=== PATIENT | male | born 2005 | race Two or more races ===

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

== ENCOUNTER 2024-04-19 06:20 | Emergency (ER) | payer OTHER, SELFPAY ==
--- NOTE | ~2024-04-19 | CT_ITS ---
EXAMINATION: CT ABDOMEN AND PELVIS WITH CONTRAST CLINICAL INFORMATION: Left testicular mass identified on ultrasound the same date. COMPARISON: None available. TECHNIQUE: Multidetector volumetric images were obtained from the superior aspect of the liver through the pubic symphysis following administration 85 mL of Omnipaque 350 intravenous contrast. Sagittal and coronal reformatted images were obtained on the technologist's workstation. Oral contrast: No This CT examination was performed using dose optimization techniques as appropriate, variously including the following: *Automated exposure control *Adjustment of mA and/or kV according to patient size (this includes techniques or standardized protocols for targeted exams where dose is matched to indication/reason for exam; i.e. extremities or head) *Use of iterative reconstruction technique FINDINGS: LUNG BASES: The visualized lung bases are unremarkable. LIVER, GALLBLADDER, AND BILIARY TREE: The liver is normal in size, shape, and attenuation. No focal hepatic lesion or biliary ductal dilatation is present. The gallbladder is unremarkable with no evidence of radiopaque gallstones, gallbladder wall thickening, or obvious pericholecystic inflammatory changes. PANCREAS: Unremarkable. SPLEEN: Unremarkable. ADRENAL GLANDS: Unremarkable. KIDNEYS AND URETERS: The kidneys are normal in size, shape, and attenuation. No hydronephrosis, hydroureter, or calculi seen. No perinephric stranding. BLADDER: Unremarkable. GASTROINTESTINAL TRACT: The small and large bowel are unremarkable. The appendix is unremarkable. ABDOMINAL WALL: No significant hernia is appreciated. LYMPH NODES: There is an increased number of normal morphology lymph nodes throughout the root of the small bowel mesentery, the largest measuring 8 mm in short axis. These are nonspecific. There are no pathologically enlarged lymph nodes identified. VASCULAR: Unremarkable. PELVIC VISCERA: The inguinal canals and prostate appear normal. Left testicular mass as detailed on the ultrasound the same day. OSSEOUS STRUCTURES: No suspicious lytic or blastic bone lesions. CT/CT abdomen pelvis w IV con IMPRESSION: 1. No acute findings in the abdomen or pelvis. No definitive metastatic disease. 2. Increased number of normal morphology lymph nodes throughout the small bowel mesentery, nonspecific. No pathologically enlarged nodes by size criteria. Electronically signed by: Jose Alberto Guo MD 04/19/2024 12:03 PM [facility]
--- NOTE | ~2024-04-19 | US_ITS ---
EXAMINATION: US SCROTUM CLINICAL INFORMATION: EXAMINATION: US SCROTUM WITH DOPPLER COMPLETE HISTORY: left test pain and swelling. COMPARISONS: There are no prior studies for comparison. FINDINGS: Real-time grayscale ultrasound imaging of the scrotum was performed. RIGHT TESTICLE: The right testis measures 5.1 x 2.7 x 3.2 cm and demonstrates normal homogeneous echotexture. No masses are seen. The right testis demonstrates normal arterial and venous color Doppler and spectral waveforms. RIGHT EPIDIDYMIS: Normal in size, shape, and vascularity. There is a 3 x 5 x 5 mm epididymal head cyst. LEFT TESTICLE: The left testis measures 3.7 x 2.1 x 2.7 cm and demonstrates heterogeneous infiltrative mass containing calcifications measuring at least 2.3 cm in size. There is increased vascularity of the mass. LEFT EPIDIDYMIS: Normal in size, shape, and vascularity. VARICOCELE: None. HYDROCELE: No significant hydrocele is seen. OTHER COMMENTS: None. US/US scrotum doppler IMPRESSION: 2.3 cm heterogeneous left testicular mass containing calcifications, compatible with testicular carcinoma. These findings were discussed with Dr. Goetz in the emergency room on 04/19/2024 and 9:25 AM. . COMPARISON: None available. TECHNIQUE: A sonogram of the scrotum was performed assessing crocker-scale appearance and color Doppler flow. Spectral Doppler analysis of the arterial and venous flow were performed in the testes bilaterally. FINDINGS: RIGHT: Right testicle measures cm, volume mL. No focal testicular parenchymal lesions are visualized. Spectral Doppler analysis of the arterial and venous flow is in the right testis. Right epididymal head is normal in size. No right hydrocele or varicocele is seen. Right epididymal Doppler flow is LEFT: Left testicle measures cm, volume mL. No focal testicular parenchymal lesions are visualized. Spectral Doppler analysis of the arterial and venous flow is in the left testis. Left epididymal head is normal in size. No left hydrocele or varicocele is seen. Left epididymal Doppler flow is IMPRESSION: Electronically signed by: Raudel Ty MD 04/19/2024 09:27 AM [facility]
--- NOTE | ~2024-04-19 | US_ITS ---
EXAMINATION: US SCROTUM CLINICAL INFORMATION: EXAMINATION: US SCROTUM WITH DOPPLER COMPLETE HISTORY: left test pain and swelling. COMPARISONS: There are no prior studies for comparison. FINDINGS: Real-time grayscale ultrasound imaging of the scrotum was performed. RIGHT TESTICLE: The right testis measures 5.1 x 2.7 x 3.2 cm and demonstrates normal homogeneous echotexture. No masses are seen. The right testis demonstrates normal arterial and venous color Doppler and spectral waveforms. RIGHT EPIDIDYMIS: Normal in size, shape, and vascularity. There is a 3 x 5 x 5 mm epididymal head cyst. LEFT TESTICLE: The left testis measures 3.7 x 2.1 x 2.7 cm and demonstrates heterogeneous infiltrative mass containing calcifications measuring at least 2.3 cm in size. There is increased vascularity of the mass. LEFT EPIDIDYMIS: Normal in size, shape, and vascularity. VARICOCELE: None. HYDROCELE: No significant hydrocele is seen. OTHER COMMENTS: None. US/US scrotum IMPRESSION: 2.3 cm heterogeneous left testicular mass containing calcifications, compatible with testicular carcinoma. These findings were discussed with Dr. Goetz in the emergency room on 04/19/2024 and 9:25 AM. . COMPARISON: None available. TECHNIQUE: A sonogram of the scrotum was performed assessing crocker-scale appearance and color Doppler flow. Spectral Doppler analysis of the arterial and venous flow were performed in the testes bilaterally. FINDINGS: RIGHT: Right testicle measures cm, volume mL. No focal testicular parenchymal lesions are visualized. Spectral Doppler analysis of the arterial and venous flow is in the right testis. Right epididymal head is normal in size. No right hydrocele or varicocele is seen. Right epididymal Doppler flow is LEFT: Left testicle measures cm, volume mL. No focal testicular parenchymal lesions are visualized. Spectral Doppler analysis of the arterial and venous flow is in the left testis. Left epididymal head is normal in size. No left hydrocele or varicocele is seen. Left epididymal Doppler flow is IMPRESSION: Electronically signed by: Raudel Ty MD 04/19/2024 09:27 AM [facility]
[2024-04-19 06:45] VITALS: BP 117/56; PULSE 57; RESP 16; TEMP 36.4; O2SAT 98; BMI 22.0
[2024-04-19 07:12] LABS: Appearance Urine Clear; Color Urine Yellow; Glucose Urine UA Negative (Negative); Leukocyte Esterase Urine Negative (Negative); Nitrite Urine Negative (Negative); PH 5.5 (5.0-9.0); Specific Gravity - Urine 1.025 (1.005-1.025); Urine Blood Negative (Negative); Urine Ketones Negative (Negative); Urine Protein Negative (Neg-Trace)
--- OUTSIDE RECORDS SUMMARY | 2024-04-19 08:08 | XMS_ITS | Encounter Summary ---
Author Organization [facility] Address [address] [place] [address] Phone Care Team Providers Care Automotive General Sales Manager Name Role Phone Mackenzie Ya MD Primary Care Provider [phone] Encounter Details Date Type Department Care Team (Late st Contact Info) Description 08/31/2015 Documentation [facility] [place] Family Medicine [address] [place] [address] Family Medicine, Physician [address] [place], [place] [id number] Social History Tobacco Use Types Packs/Day Years Used Date Smoking Tobacco: Never Assessed Sex and Gender Information Value Date Recorded Sex Assigned at Not on file Legal Sex Male 5:09 PM EDT Gender Identity Not on file Sexual Orientation Straight 05/25/2022 11 :04 AM EDT documented as of this encounter Plan of Treatment Not on file documented as of this encounter Visit Diagnoses Not on filedocumented in this encounter Care Teams Automotive General Sales Manager Relationship Specialty Start Date End Date Mackenzie Ya MD [address] [facility] [address] PCP - General 09/30/16 05/11/23 documented as of this encounter
--- OUTSIDE RECORDS SUMMARY | 2024-04-19 08:08 | XMS_ITS | Encounter Summary ---
Author Organization [facility] Address [address] [place] [address] Phone Care Team Providers Care Intern Product Marketing Manager Name Role Phone Mackenzie Ya MD Primary Care Provider [phone] Encounter Details Date Type Department Care Team (Late st Contact Info) Description 10/06/2016 Conversion Encounter [facility] [place] [address] [place] [address] Social History Tobacco Use Types Packs/Day Years [...] on filedocumented in this encounter Care Teams Intern Product Marketing Manager Relationship Specialty Start Date End Date Mackenzie Ya MD [address] [place] [address] PCP - General 09/30/16 05/11/23 documented as of this encounter
--- OUTSIDE RECORDS SUMMARY | 2024-04-19 08:08 | XMS_ITS | Clinical Summary ---
Author Organization [facility] Address [address] [place] [phone] Phone Care Team Providers Care Traveling Engineer Name Role Phone Unavailable Primary Care Provider Unavailabl e Allergies No known active allergies Medications No known medications Active Problems Problem Noted Date Diagnosed Date Personal history of COVID-19 01/25/2021 Overview (01/25/2021): Sx started 01/15/21 Tested positive 01/21/2021 10 days of isolation ends 01/26/2021 - can return to school Recommended clearance to return to sports d/t family hx of palpatations Acne vulgaris 05/28/2020 Assessment & Plan (05/28/2020 3:19 PM EDT): Acne discussed and information given. Use benzoyl peroxide wash every morning. Start tretinoin 0.025% cream nightly. Follow-up in 2 months if no better. Psychosocial stressors Overview (08/13/2018): Concerns: New Practice - Transfer from [facility]. Last [facility] 02/21/14. DCF custody since 11/2013. 1st in Foster care then Great Mat Aunt got custody 01/2014. Mom is listed as having Bipolar illness. Dad in MVA 2009 Lived in [place] for 2 years in past when living with Pat GP while mom was homeless. Has been back in [place] since 2012 Mom had supervised visits but stopped when Mom grabbed Great Aunt. DCF worker = [facility]in [facility] PGP are trying to get custody 07/2018: Guardian Ant became his legal guardian in June 2018. DCF closed case Assessment & Plan (08/13/2018 1:24 PM EDT): Great Aunt is guardian Pt does not see mom DCF not involved any more Resolved Problems Problem Noted Date Diagnosed Date Resolved Date Nocturnal enuresis 06/09/2015 9 Overview (08/13/2018): DDAVP started 2016 Immunizations Immunization Administration Dates Next Due COVID-19 Pfizer, bivalent, 12+ years 05/25/2022 COVID-19 Pfizer, monovalent, 12+ years 2,02/04/2021 DTaP 03/03/2009, 6,02/28/2005,12/14,2004 HPV Vaccine 9 Valent 07/07/2016,06/09/2015 Hep A, ped/adol 07/07/2016,06/09/2015 Hep B, ped/adol 02/28/2005,2004,2004 HiB 11/23/2005, 6,05/27/2005,12/14 IPV 03/03/2009, 6,2004,08/26 Influenza 12/25/2013 Influenza, injectable, quadrivalent 06/09/2015 Influenza, injectable, quadr ivalent, preservative free 05/25/2022,05/28/2020,03/15/2018 MMR 03/03/2009,07/27/2005 Meningococcal B Trumenba 05/25/2022 Meningococcal Conj (Menactra) MCV4P 06/09/2015 Meningococcal Conj (Menquadfi) MCV4TT 05/25/2022 Pneumococcal Conjugate 13-Valent 05/27/2005,10/2005,2004 Tdap 06/09/2015 Varicella 03/03/2009,07/27/2005 Family History Medical History Relation Name Comments Bipolar disorder Mother Relation Name Status Comments Father MVA Mother Other Addy Mani Social History Tobacco Use Types Packs/Day Years Used Date Smoking Tobacco: Never Smokeless Tobacco: Never Alcohol Use Standard Drinks/Week Comments Never 0 (1 standard drink = 0.6 oz pur e alcohol) Hunger/Food Answer Date Recorded In the last 12 months, did y ou or your family ever eat less than you felt you should because there wasn't enough money for food? No 05/25/2022 Stable Housing Answer Date Recorded Are you worried that in the next 2 months you may not have stable housing? No 05/25/2022 Transportation Concerns Answer Date Rec orded In the last 12 months, have you or your family ever had to go without healthcare because you didn't have a way to get there? No 05/25/2022 Hazards in Home Answer Date Recorded Think about the place you li ve. Do you have problems with any of the following? Pests (mice or roaches), mold, no/not working smoke detectors, water leaks, no window guards. No 2022 Financing Utilities Answer Date Recorde d In the last 12 months, has t he electric, gas, oil, or water company threatened to shut off your services in your home? No 05/25/2022 Safety at Home Answer Date Recorded Are you or your family worried about feeling saf e in your home? No 05/25/2022 Outside Support Answer Date Recorded Do you feel that you need mo re support from other people or programs to help you care for yourself or your family? No 05/25/2022 Understanding Health Concerns Answer Da te Recorded Do you need help understandi ng your or your child's healthcare needs (diagnosis, medications, plan, etc.)? No 05/25/2022 Financing Health Concerns Answer Date R ecorded In the last 12 months, was t here a time when your child needed to see a doctor or get medications or supplies but could not because of cost? No 05/25/2022 Missing School or Work Answer Date Dayo rded Did you or your child miss s chool or work because of a health problem that could have been avoided? No 05/25/2022 Sex and Gender Information Value Date Recorded Sex Assigned at Not on file Legal Sex Male 5:09 PM EDT Gender Identity Not on file Sexual Orientation Straight 05/25/2022 11 :04 AM EDT Last Filed Vital Signs Vital Sign Reading Time Taken Comments Blood Pressure 125/64 05/25/2022 10:16 AM EDT Pulse 66 05/25/2022 10:16 AM EDT Temperature 36.3 ??C (97.4 ??F) 02/04/2021 1 0:11 AM EST Respiratory Rate - - Oxygen Saturation - - Inhaled Oxygen Concentration - - Weight 61.1 kg (134 lb 9.6 oz) 05/26/19 10:16 AM EDT Height 162.6 cm (5' 4 ) 05/25/2022 10:1 6 AM EDT Body Mass Index 23.1 05/25/2022 10:16 AM EDT Body Mass Index Percentile 65.56% 05/25 10:16 AM EDT Growth Chart: [facility] (Boys, 2-2 0 Years) Plan of Treatment Health Maintenance Due Date Last Done Comments Men B Vaccine (2 of 2 - Trumenba SCDM 2-dose series) 11/24/2022 05/25/2022 Influenza Vaccines (#1) 2023 05/26/19, 05/28/2020, 03/15/2018, Additional history exists COVID-19 Vaccine ( season) 2023 05/25/2022, 02/25/2021, 02/04/2021 DTaP,Tdap,and Td Vaccines (7 - Td or Tdap) 06/08/2025 06/09/2015, 03/03/2009, 11/23/2005, Additional history exists Hepatitis B Vaccines Completed 02/28/2005, 2004, 2004 Pneumococcal Vaccine Aged Out 05/27/2005, 02/28/2005, 2004 No longer eligible based on patient's age to complete this topic HIB Vaccines Completed 11/23/2005, 08/2005, 05/27/2005, Additional history exists IPV Vaccines Completed 03/03/2009, 10/2005, 2004, Additional history exists MMR Vaccines Completed 03/03/2009, 07/27/2005 Varicella Vaccines Completed 03/03/2009, 07/27/2005 HPV Vaccines Completed 07/07/2016, 06/09/2015 Hepatitis A Vaccines Completed 07/07/2016, 06/09/19 16 Meningococcal Vaccine Completed 05/25/2022, 016 Insurance [employer] NON PCC [facility] Address: [address] [address] [place] [address]
--- NOTE | 2024-04-19 09:00 | ED_ITS ---
HPI - Male Genitourinary General Chief complaint: Urogenital-Male Stated complaint: uro gen male Time Seen by Provider: 04/19/24 08:43 Source: patient Mode of arrival: ambulatory Limitations: no limitations History of Present Illness ED Provider: Janet Schuster NP HPI Narrative: patient is a 18-year-old male who presents emergency department with his fiancee for evaluation of left testicular pain and swelling. He reports that this has been ongoing for the past 3 months, has not changed but also has not improved. He states that he recently had moved to the area and was awaiting his health insurance before he sought evaluation. He denies any precipitating injury to this area. He states he has been able to urinate without difficulty denies dysuria, urinary frequency/ urgency / hesitancy or hematuria. He denies abnormal urethral discharge. He denies concern for sexually transmitted infections. He denies pain with intercourse. as far as he knows there has been no prior testicular issues in the past. He denies any rashes or lesions. Related Data Allergies Allergy/AdvReac Type Severity Reaction Status Date / Time No Known Allergies Allergy Verified 04/19/24 06:47 [No Known Allergies*] Review of Systems 2 Review of Systems: Yes all other systems are reviewed and are negative PMFSH Past Medical History Attestation statement: The following information was validated with the patient. Source: old records reviewed Physical Exam 2 Vital Signs: Vital Signs: Last Vital Signs Temp 0 F L 04/19/24 13:50 Pulse 63 04/19/24 13:50 Resp 16 04/19/24 13:50 BP 134/68 04/19/24 13:50 Pulse Ox 99 04/19/24 13:50 O2 Del Method Room Air 04/19/24 13:50 BMI result Body Mass Index 22.0 Appearance: Alert.?Oriented to person, place and time. No acute distress.?Normal affect. Eyes: Pupils equal, round and reactive to light.? ENT: Pharynx normal.?? Neck: Normal inspection.? Neck supple.?? CVS: Heart sounds normal. Normal heart rate and rhythm.? Pulses normal.?? Respiratory: No respiratory distress.? Lung sounds clear to auscultation bilaterally?? Abdomen: Soft and non-tender. Normoactive bowel sounds. Urogenital: performed with technical program manager ED registered veterinary technician Shawna - cremasteric reflex is negative on the left, negative friend sign. No palpable mass erythema or warmth. Skin: Skin warm and dry.? Normal skin color.? Normal skin turgor.?? Extremities: No lower extremity edema.? No calf ttp? Neuro: Moves all extremities spontaneously. Sensation intact bilaterally. CN II- XII intact. No focal neuro deficits. Ambulates with normal steady gait. Course Reevaluation(s) Reevaluation #1: Patient updated on ultrasound findings highly concerning for cancerous etiology in addition to plan of care for additional serum labs and CT of the abdomen and pelvis at this time pending Urology consultation in the emergency department today. All questions were answered. Time: 10:28 Medications Administered Discontinued Medications Generic Name Dose Route Start Last Admin Trade Name Freq PRN Reason Stop Dose Admin Sodium Chloride 1,000 mls @ 999 mls/hr 04/19/24 10:30 04/19/24 13:07 Ns IV 04/19/24 11:30 Infused .Q1H1M TORRES Infusion Iohexol 100 ml 04/19/24 11:44 04/19/24 11:44 Iohexol 350 Mg/Ml 100 Ml Infus..Btl IV 04/19/24 11:45 85 ml ONCE ONE Administration Ketorolac Tromethamine 15 mg 04/19/24 11:59 04/19/24 12:09 Ketorolac Tromethamine 15 Mg/Ml Vial IVPUSH 04/19/24 12:00 15 mg ONCE ONE Administration Medical Decision Making Medical Decision Making MDM Narrative: Patient is a 18-year-old male otherwise healthy presenting for evaluation of 3 months with left testicular pain and subjective swelling without acute changes over the past 3 months. Had not sought prior evaluation due to lack health insurance. on examination today has a negative cremasteric reflex on the left, negative phren sign. Without external skin changes or cellulitic changes. No appreciable varicocele. CBC is without leukocytosis anemia or thrombocytopenia. No electrolyte derangement. No HIWOT. Overall unremarkable LFTs. Urinalysis without evidence of infection, is however concentrated. Scrotal ultrasound obtained concerning for left testicular mass, no evidence of torsion Differential Diagnosis Differential Diagnoses: The differential diagnosis associated with the presentation includes (Testicular mass, testicular torsion, varicocele, hydrocele) Admission/Observation Consideration of admission/observation: Escalation of care including admission/observation considered Consult Healthcare Provider Management of the patient was discussed with: Preservative Filler Machine Operator Urology; Dr. Shaikh - ultrasound revealing 2.3 cm heterogeneous left testicular mass containing calcifications concerning for carcinoma - recommends CT of the abdomen and pelvis for staging in addition to beta hCG and alpha fetoprotein, planning for outpatient orchiectomy next week, will be by later this afternoon to examine patient. Lab Data MDM Lab Attestation statement: I reviewed the patient's lab results. (See narrative above) 04/19/24 09:17 04/19/24 09:16 Labs: Lab Results 04/19/24 04/19/24 04/19/24 Range/Units 07:03 07:04 09:16 WBC (4.8-10.8) X10*3/uL RBC (4.60-5.80) X10*6/uL Hgb (14.0-18.0) g/dl Hct (42.0-52.0) % MCV (80.0-98.0) fL MCH (27.0-33.0) pg MCHC (31.0-36.0) g/dl RDW (11.0-16.0) % Plt Count (160-400) X10*3/uL MPV (9.4-12.4) fL Immature Gran % (Auto) (0.0-0.4) % Neut % (Auto) (45-73) % Lymph % (Auto) (20-40) % [place] % (Auto) (2-11) % Eos % (Auto) (0-4) % Baso % (Auto) (0-2) % Lymph # (Auto) (1.2-4.9) X10*3/uL [place] # (Auto) (0.1-1.2) X10*3/uL Eos # (Auto) (0.0-0.4) X10*3/uL Baso # (Auto) (0.0-0.2) X10*3/uL Abs Immat Gran (auto) (0.00-0.03) X10*3/uL Absolute Neuts (auto) (2.0-8.3) x10*3/uL Absolute Nucleated RBC (0.0-0.012) X10*3/uL Nucleated RBC % (auto) (0.0-0.2) /100WBC Sodium 141 (135-145) mmol/L Potassium 3.9 (3.3-5.1) mmol/L Chloride 104 (96-108) mmol/L Carbon Dioxide 27 (22-29) mmol/L Anion Gap 14 (12-20) BUN 17 H (9-16) mg/dL Creatinine 0.80 (0.5-1.4) mg/dL Estim Creat Clear Calc 129.6 Estimated GFR > 60 Random Glucose 97 (60-115) mg/dL Calcium 9.8 (8.4-10.2) mg/dL Total Bilirubin 0.2 (0.0-1.0) mg/dL AST 33 (5-37) U/L ALT 44 H (0-40) U/L Alkaline Phosphatase 96 (39-117) U/L Total Protein 8.4 H (6.5-8.0) g/dL Albumin 4.9 (3.5-5.0) g/dL Beta HCG, Quant mIU/mL Urine Color Yellow Urine Appearance Clear Urine pH 5.5 (5.0-9.0) Ur Specific Barre 1.025 (1.005-1.025) Urine Protein Negative (Neg-Trace) mg/dL Urine Glucose (UA) Negative (Negative) mg/dL Urine Ketones Negative (Negative) mg/dL Urine Blood Negative (Negative) Urine Nitrite Negative (Negative) Ur Leukocyte Esterase Negative (Negative) Chlam trachomat DNA PCR NOT DETECTED (Not Detect.) N.gonorrhoeae DNA (PCR) NOT DETECTED (Not Detect.) 04/19/24 04/19/24 Range/Units 09:17 11:05 WBC 6.3 (4.8-10.8) X10*3/uL RBC 5.51 (4.60-5.80) X10*6/uL Hgb 15.3 (14.0-18.0) g/dl Hct 44.5 (42.0-52.0) % MCV 80.8 (80.0-98.0) fL MCH 27.8 (27.0-33.0) pg MCHC 34.4 (31.0-36.0) g/dl RDW 13.0 (11.0-16.0) % Plt Count 225 (160-400) X10*3/uL MPV 9.2 L (9.4-12.4) fL Immature Gran % (Auto) 0.5 H (0.0-0.4) % Neut % (Auto) 49.3 (45-73) % Lymph % (Auto) 38.5 (20-40) % [place] % (Auto) 8.7 (2-11) % Eos % (Auto) 2.2 (0-4) % Baso % (Auto) 0.8 (0-2) % Lymph # (Auto) 2.4 (1.2-4.9) X10*3/uL [place] # (Auto) 0.6 (0.1-1.2) X10*3/uL Eos # (Auto) 0.1 (0.0-0.4) X10*3/uL Baso # (Auto) 0.1 (0.0-0.2) X10*3/uL Abs Immat Gran (auto) 0.03 (0.00-0.03) X10*3/uL Absolute Neuts (auto) 3.1 (2.0-8.3) x10*3/uL Absolute Nucleated RBC 0.000 (0.0-0.012) X10*3/uL Nucleated RBC % (auto) 0.0 (0.0-0.2) /100WBC Sodium (135-145) mmol/L Potassium (3.3-5.1) mmol/L Chloride (96-108) mmol/L Carbon Dioxide (22-29) mmol/L Anion Gap (12-20) BUN (9-16) mg/dL Creatinine (0.5-1.4) mg/dL Estim Creat Clear Calc Estimated GFR Random Glucose (60-115) mg/dL Calcium (8.4-10.2) mg/dL Total Bilirubin (0.0-1.0) mg/dL AST (5-37) U/L ALT (0-40) U/L Alkaline Phosphatase (39-117) U/L Total Protein (6.5-8.0) g/dL Albumin (3.5-5.0) g/dL Beta HCG, Quant < 2 mIU/mL Urine Color Urine Appearance Urine pH (5.0-9.0) Ur Specific [place] (1.005-1.025) Urine Protein (Neg-Trace) mg/dL Urine Glucose (UA) (Negative) mg/dL Urine Ketones (Negative) mg/dL Urine Blood (Negative) Urine Nitrite (Negative) Ur Leukocyte Esterase (Negative) Chlam trachomat DNA PCR (Not Detect.) N.gonorrhoeae DNA (PCR) (Not Detect.) Radiology Impression Discussion of test interpretation with radiology: I have reviewed the radiologist's reading. Radiologist Impression: US SCROTUM CLINICAL INFORMATION: EXAMINATION: US SCROTUM WITH DOPPLER COMPLETE HISTORY: left test pain and swelling. COMPARISONS: There are no prior studies for comparison. FINDINGS: Real-time grayscale ultrasound imaging of the scrotum was performed. RIGHT TESTICLE: The right testis measures 5.1 x 2.7 x 3.2 cm and demonstrates normal homogeneous echotexture. No masses are seen. The right testis demonstrates normal arterial and venous color Doppler and spectral waveforms. RIGHT EPIDIDYMIS: Normal in size, shape, and vascularity. There is a 3 x 5 x 5 mm epididymal head cyst. LEFT TESTICLE: The left testis measures 3.7 x 2.1 x 2.7 cm and demonstrates heterogeneous infiltrative mass containing calcifications measuring at least 2.3 cm in size. There is increased vascularity of the mass. LEFT EPIDIDYMIS: Normal in size, shape, and vascularity. VARICOCELE: None. HYDROCELE: No significant hydrocele is seen. OTHER COMMENTS: None. US/US scrotum doppler IMPRESSION: 2.3 cm heterogeneous left testicular mass containing calcifications, compatible with testicular carcinoma. These findings were discussed with Dr. Goetz in the emergency room on 04/19/2024 and 9:[address]/CT abdomen pelvis w IV con IMPRESSION: 1. No acute findings in the abdomen or pelvis. No definitive metastatic disease. 2. Increased number of normal morphology lymph nodes throughout the small bowel mesentery, nonspecific. No pathologically enlarged nodes by size criteria. Discharge Plan Discharge Clinical Impression: Mass of left testicle Patient Disposition: Home, Self-Care Instructions: Testicle Pain (ED) Additional Instructions: as discussed, your workup today is concerning for a mass found in the left testicle most concerning for cancer. As mentioned, you will follow up outpatient with Urology next week, Dr. Shaikh who came and saw you at bedside today. Plan is for outpatient orchiectomy /Removal of the testicle. if you do not hear from their office by Monday please contact them to schedule follow-up visit. Referrals: Paul Shaikh MD [Physician] - Interventions: ED Discharge Assessment Last Done: 04/19/24 13:50 Discharge Date/Time: 04/19/24 13:51 Print Language: [place]
[2024-04-19 09:28] LABS: MANUAL DIFF FLAG NO
[2024-04-19 09:30] LABS: Basophils Absolute Auto 0.1 X10*3/uL (0.0-0.2); Basophils Percent Auto 0.8 % (0-2); Eosinophils Absolute Auto 0.1 X10*3/uL (0.0-0.4); Eosinophils Percent Auto 2.2 % (0-4); Hematocrit 44.5 % (42.0-52.0); Hemoglobin 15.3 g/dl (14.0-18.0); Imm Gran Abs Auto 0.03 X10*3/uL (0.00-0.03); Imm Gran Pct Auto 0.5 % (0.0-0.4); Lymphocytes Absolute Auto 2.4 X10*3/uL (1.2-4.9); Lymphocytes Percent Auto 38.5 % (20-40); Mean Corpuscular HGB Conc 34.4 g/dl (31.0-36.0); Mean Corpuscular Hemoglobin 27.8 pg (27.0-33.0); Mean Corpuscular Volume 80.8 fL (80.0-98.0); Mean Platelet Volume 9.2 fL (9.4-12.4); Monocytes Absolute Auto 0.6 X10*3/uL (0.1-1.2); Monocytes Percent Auto 8.7 % (2-11); Neutrophils Absolute Auto 3.1 x10*3/uL (2.0-8.3); Neutrophils Percent Auto 49.3 % (45-73); Platelet Count 225 X10*3/uL (160-400); Red Blood Count 5.51 X10*6/uL (4.60-5.80); White Blood Count 6.3 X10*3/uL (4.8-10.8)
[2024-04-19 09:43] LABS: Alanine Aminotransferase 44 U/L (0-40); Albumin Level 4.9 g/dL (3.5-5.0); Alkaline Phosphatase 96 U/L (39-117); Anion Gap 14 (12-20); Aspartate Amino Transferase 33 U/L (5-37); Bilirubin Total 0.2 mg/dL (0.0-1.0); Blood Urea Nitrogen 17 mg/dL (9-16); Calcium 9.8 mg/dL (8.4-10.2); Carbon Dioxide 27 mmol/L (22-29); Chloride 104 mmol/L (96-108); Creatinine Clr Calc Pharmacy 129.6; Estimated Glomerular Filt Rate > 60; Glucose Random 97 mg/dL (60-115); Potassium 3.9 mmol/L (3.3-5.1); Sodium 141 mmol/L (135-145); Total Protein 8.4 g/dL (6.5-8.0)
[2024-04-19 10:49] LABS: CT PCR NOT DETECTED (Not Detect.); NG PCR NOT DETECTED (Not Detect.)
[2024-04-19] MEDS: 0.9 % Sodium Chloride 1,000 ML 999 ML IV (11:00)
[2024-04-19 11:36] LABS: HCG Quantitative < 2 mIU/mL
[2024-04-19] MEDS: iohexoL 350 MG/ML 100 ML INFUS..BTL IV (11:44)
[2024-04-19 11:51] VITALS: BP 134/68; PULSE 63; RESP 16; O2SAT 99
--- NOTE | 2024-04-19 11:59 | ECG_ITS ---
Test Reason : TORSION Blood Pressure : */* mmHG Vent. Rate : 53 BPM Atrial Rate : 53 BPM P-R Int : 142 ms QRS Dur : 88 ms QT Int : 396 ms P-R-T Axes : 46 68 23 degrees QTcB Int : 371 ms Sinus bradycardia Otherwise normal ECG No previous ECGs available Referred By: Janet Schuster Electronically Signed By: Tyler Johnson
[2024-04-19] MEDS: Ketorolac Tromethamine 15 MG/ML VIAL IVPUSH (12:09)
--- NOTE | 2024-04-19 13:21 | PM.UROCN ---
History of Present Illness Consult details Consult date: 04/19/24 Narrative: CC: left testicle mass 18-year-old male Persistent mass left testicle now with some degree of discomfort Imaging - US - The left testis measures 3.7 x 2.1 x 2.7 cm and demonstrates heterogeneous infiltrative mass containing calcifications measuring at least 2.3 cm in size. There is increased vascularity of the mass. - CT IMPRESSION: 1. No acute findings in the abdomen or pelvis. No definitive metastatic disease. 2. Increased number of normal morphology lymph nodes throughout the small bowel mesentery, nonspecific. No pathologically enlarged nodes by size criteria Laboratory - alpha fetoprotein and beta HCG pending Recommend left radical orchiectomy Palpable mass left testicle Review of Systems Constitutional: Constitutional: Reports as per HPI and Reports no additional constitutional complaints Cardiovascular: Cardiovascular: Reports as per HPI and Reports no additional cardiovascular complaints Respiratory: Respiratory: Reports as per HPI and Reports no additional respiratory complaints Gastrointestinal: Gastrointestinal: Reports as per HPI and Reports no additional gastrointestinal complaints Genitourinary: Genitourinary: Reports as per HPI Musculoskeletal: Musculoskeletal: Reports no additional musculoskeletal complaints and Reports as per HPI Neurologic: Reports system reviewed and no additional complaints, except as documented and Reports as per HPI [facility] Social History Social History Smoked in Last 30 Days: No Use of substances other than those prescribed or required for medical reasons: No Advance Directives: No Advance Directives Information Provided: No Do you have a plan to hurt others: No Plan Meds Allergies Allergy/AdvReac Type Severity Reaction Status Date / Time No Known Allergies Allergy Verified 04/19/24 06:47 [No Known Allergies*] Physical Exam Vital Signs: Vital Signs: Last Vital Signs Temp 97.5 F 04/19/24 06:45 Pulse 63 04/19/24 11:51 Resp 16 04/19/24 11:51 BP 134/68 04/19/24 11:51 Pulse Ox 99 04/19/24 11:51 O2 Del Method Room Air 04/19/24 11:51 BMI result Body Mass Index 22.0 Const: General: cooperative, healthy appearing, comfortable and no acute distress Orientation/consciousness: patient oriented x3 HEENT: Face and sinus: Yes normal facial exam Mouth: moist mucous membranes Neck: Neck: Yes normal visual inspection, Yes full ROM and Yes trachea midline Chest: Chest palpation & inspection: normal inspection of the chest Resp: Effort & Inspection: normal respiratory effort, able to speak in complete sentences and no respiratory distress GI: Inspection: Yes normal to inspection Back/Spine/Pelvis: Cervical Spine: normal cervical lordosis Thoracic/Lumbar Spine: thoracic and lumbar spine normal to inspection Skin: General skin exam: no rashes or lesions noted Neuro: General: patient oriented x3, tone normal and moves all extremities Extrem: General: Yes normal to inspection and Yes capillary refill normal Results Labs 04/19/24 09:17 04/19/24 09:16 Labs: Abnormal lab results 04/19/24 04/19/24 Range/Units 09:16 09:17 MPV 9.2 L (9.4-12.4) fL Immature Gran % (Auto) 0.5 H (0.0-0.4) % BUN 17 H (9-16) mg/dL ALT 44 H (0-40) U/L Total Protein 8.4 H (6.5-8.0) g/dL Short CBC 04/19/24 Range/Units 09:17 WBC 6.3 (4.8-10.8) X10*3/uL Hgb 15.3 (14.0-18.0) g/dl Hct 44.5 (42.0-52.0) % Plt Count 225 (160-400) X10*3/uL BMP 04/19/24 09:16 Sodium 141 Potassium 3.9 Chloride 104 Carbon Dioxide 27 BUN 17 H Creatinine 0.80 Calcium 9.8 Liver Function 04/19/24 Range/Units 09:16 Total Bilirubin 0.2 (0.0-1.0) mg/dL AST 33 (5-37) U/L ALT 44 H (0-40) U/L Alkaline Phosphatase 96 (39-117) U/L Albumin 4.9 (3.5-5.0) g/dL Urine 04/19/24 Range/Units 07:03 Urine Color Yellow Urine Appearance Clear Urine pH 5.5 (5.0-9.0) Ur Specific [place] 1.025 (1.005-1.025) Urine Protein Negative (Neg-Trace) mg/dL Urine Glucose (UA) Negative (Negative) mg/dL All other labs normal. Assessment and Plan (1) Testicular cancer: Status: Acute Plan Risks, benefits and alternatives to therapy were discussed. These include but are not limited to infection, bleeding, damage to local organs and tissues, need for further interventions. Anesthetic risks regarding cardiac arrhythmia, blood clots, and potential mortality were discussed. The patient understands the typical recovery time and the outpatient nature of the procedure. After consideration of these risks the patient gives full informed consent and they wish to move ahead with the procedure. - left radical orchiectomy Procedures Date of Service Date of Service: 04/19/24
--- NOTE | 2024-04-19 13:23 | PC.NURSE ---
Seen by Urology, plan for discharge with outpt follow up and surgery
[2024-04-19 13:50] VITALS: BP 134/68; PULSE 63; RESP 16; TEMP -17.7; TEMP 0; O2SAT 99
[2024-04-22 12:53] LABS: Alpha Fetoprotein 2.2 ng/mL (<6.1)
== END 2024-04-19 13:51 | disposition home or self-care (01) ==
PROVIDERS: Nurse Practitioner Family; Emergency Provider Emergency Medicine
DX: N50.812 Left testicular pain (principal); R00.1 Bradycardia, unspecified; R11.2 Nausea with vomiting, unspecified; R10.32 Left lower quadrant pain; R10.2 Pelvic and perineal pain; Z79.899 Other long term (current) drug therapy
CPT/HCPCS: 36415; 74177; 76870; 80053; 81003; 82105; 84702; 85025; 87491; 87591; 93005; 93975; 96361; 96374; 99284; 99285; J1885; Q9967

== ENCOUNTER → 2024-04-19 07:36 | Outpatient (BNV) | payer OTHER, SELFPAY | PROVIDERS: Emergency Provider Emergency Medicine; Visit Provider Radiology Diagnostic Radiology | DX: R59.1 Generalized enlarged lymph nodes (principal); N50.812 Left testicular pain | CPT/HCPCS: 74177; 76870; 93975 ==

== ENCOUNTER → 2024-04-19 08:02 | Outpatient (BNV) | payer OTHER, SELFPAY | PROVIDERS: Emergency Provider Emergency Medicine; Visit Provider Urology | DX: C62.90 Malignant neoplasm of unspecified testis, unspecified whether descended or undescended (principal) | CPT/HCPCS: 99284 ==

== ENCOUNTER → 2024-04-19 11:59 | Outpatient (BNV) | payer OTHER, SELFPAY | PROVIDERS: Emergency Provider Emergency Medicine; Visit Provider Internal Medicine Cardiovascular Disease | DX: R00.1 Bradycardia, unspecified (principal) | CPT/HCPCS: 93010 ==

== ENCOUNTER 2024-04-22 14:01 | Day surgery (SDC) | payer OTHER, SELFPAY ==
--- OUTSIDE RECORDS SUMMARY | 2024-04-22 07:40 | XMS_ITS | Encounter Summary ---
Author Organization [facility] Address [address] [place] [address] Phone Care Team Providers Care Union Representative Name Role Phone Mackenzie Ya MD Primary Care Provider [phone] Encounter Details Date Type Department Care Team (Late st Contact Info) Description 10/06/2016 Conversion Encounter [facility] [place] [address] [place] [address] Social History Tobacco Use Types Packs/Day Years [...] on filedocumented in this encounter Care Teams Union Representative Relationship Specialty Start Date End Date Mackenzie Ya MD [address] [place] [address] PCP - General 09/30/16 05/11/23 documented as of this encounter
--- OUTSIDE RECORDS SUMMARY | 2024-04-22 07:40 | XMS_ITS | Encounter Summary ---
Author Organization [facility] Address [address] [place] [address] Phone Care Team Providers Care Groover And Turner Name Role Phone Mackenzie Ya MD Primary Care Provider Encounter Details Date Type Department Care Team (Late st Contact Info) Description 08/31/2015 Documentation [facility] Family Medicine [address] [place] [address] Family Medicine, Physician [address] [place], [place] [id number] Social History Tobacco Use Types Packs/Day Years [...] on filedocumented in this encounter Care Teams Groover And Turner Relationship Specialty Start Date End Date Mackenzie Ya MD [address] [facility] [place] [address] PCP - General 09/30/16 05/11/23 documented as of this encounter
--- OUTSIDE RECORDS SUMMARY | 2024-04-22 07:40 | XMS_ITS | Clinical Summary ---
Author Organization [facility] Address [address] [place] [phone] Phone Care Team Providers Care Junior Web Developer Name Role Phone Unavailable Primary Care Provider [...] (08/13/2018): Concerns: New Practice - Transfer from [facility]. Last [facility] 02/21/14. DCF custody since 11/2013. 1st in Foster care then Great Mat Aunt got custody 01/2014. Mom is listed as having Bipolar illness. Dad in MVA 2009 Lived in [place] for 2 years in past when living with Pat GP while mom was homeless. Has been back in [place] since 2012 Mom had supervised visits but stopped when Mom grabbed Great Aunt. DCF worker = Kristin Valera [facility] are trying to get custody 07/2018: [...] 65.56% 05/25 10:16 AM EDT Growth Chart: [facility] (Boys, 2-2 0 Years) Plan of Treatment [...] 16 Meningococcal Vaccine Completed 05/25/2022, 016 Insurance [facility] NON PCC [facility] ACO
[2024-04-22] MEDS: Lactated Ringers 1,000 ML 80 ML IVCONT (14:23)
[2024-04-22 14:29] VITALS: BP 132/86; PULSE 69; RESP 18; TEMP 36.7; O2SAT 100; BMI 21.8
--- NOTE | 2024-04-22 15:00 | PC.NURSE ---
report given to xiomara cerna rn. aware of need of consents x 2 to be signed, order, 24 hour report, antibiotic and 3 places to sign on preop record with verification of marking on left.
--- NOTE | 2024-04-22 16:38 | MHC.SHP ---
Pre-Procedural Eval Section A - 24 Hr Update-Section A only Date of Service: 04/22/24 The patient is an INPATIENT: No Changes since office visit: No Cold of Flu in the past 2 weeks, No New Medical Problems, No Changes in Medication and No Patient answered all questions The patient has been examined within 24 hours of the surgical procedure. The History & Physical has been completed within 30 days and I have reviewed it.: Yes Section B - Complete if H&P > 30 days Chief Complaint: Malignant neoplasm of unspecified testis, Details of Present Illness: Left radical orchiectomy Relevant Family History (Specify if Yes): No Relevant Social History: None Present Medications: see Short Stay Collaborative assessment Medical History: No relevant PMH History of Previous Operations: No relevant previous surgery Allergies: Allergies Allergy/AdvReac Type Severity Reaction Status Date / Time No Known Allergies Allergy Verified 04/22/24 14:30 [No Known Allergies*] Review of Systems Sugical H&P ROS: Negative: Constitution, Cardiovascular, Respiratory, Neurological, Psychiatric, Hem-Onc, Allergic/Immunologic, Gastrointestinal, Genitourinary, Musculoskeletal, Integumentary, Endocrine and Eyes/Ears/Nose/Throat Exam Surgical H&P Exam: Normal: HEENT, Normal: Heart, Normal: Lungs, Normal: Extremities, Normal: Abdomen, Normal: Skin and Normal: Neurological Plan Diagnosis/Plan: Unchanged (Left radical orchiectomy) I have reviewed the history and physical and performed a pertinent physical examination on my patient. No changes have occurred unless specified. Time Spent With Patient Time: Total time managing care of this patient today ____ minutes.
--- NOTE | 2024-04-22 16:46 | HO.ANESPROP2 ---
HPI - Anesthesia Eval Consult details Narrative: for left radical orchiectomy PMFSH Active Problems Active Problems: All Active Problems Testicular cancer (Acute) Headache (Acute) Past Medical History Medical History (Updated 04/22/24 @ 14:30 by Allyson Pace RN) Testicular cancer Family History Family history of problems with anesthesia: No Surgical History Surgical History (Updated 04/22/24 @ 14:30 by Allyson Pace RN) No pertinent past surgical history History of Problems with Anesthesia: No Social History Social History Household Members Other:: s.o. and her family Are you a primary congregational care pastor to a significant other at home: No Do you presently have visiting nurse or other home services: No Patient Tobacco Use Status: Never used Tobacco Substance Use Frequency: Daily Have you been hit, kicked, punched, or otherwise hurt by someone within the past year? If so, by whom?: No Are you DNR?: No Advance Directives: No Advance Directives Information Provided: Yes Recently lost weight without trying: No Nutrition Risks: No Nutritional Risk Meds Allergies Allergy/AdvReac Type Severity Reaction Status Date / Time No Known Allergies Allergy Verified 04/22/24 14:30 [No Known Allergies*] Active Medications: Current Medications Lactated Ringer's (Lr) 1,000 mls @ 80 mls/hr IVCONT .[id number] TORRES Last Admin: 04/22/24 14:23 Dose: 80 mls/hr Exam Height,Weight and Vital Signs: Height ; 5 ft 6 in Weight 61.4 kg Last Vital Signs Temp 98.1 F 04/22/24 14:29 Pulse 69 04/22/24 14:29 Resp 18 04/22/24 14:29 BP 132/86 04/22/24 14:29 Pulse Ox 100 04/22/24 14:29 O2 Del Method Room Air 04/22/24 14:29 Airway Mallampati Class: II TM Dist: >3cm Neck ROM: Full Loose/Missing/Broken Teeth: No Heart: ok Lungs: ok Assessment and Plan Assessment Anesthesia Assessment: Anesthesia Plan Discussed and Chart Reviewed Final Anesthetic Review Family History of Problems with Anesthesia: No History of Problems with Anesthesia: No NPO: Yes ASA Class: II Final Preanesthetic Review: No Changes in Pt Med Stat, Meds/Allgs Chart Reviewed, Consent Obtained/Reviewed and Anes Risks/Benef Reviewed Patient Risk: Low Procedure Risk: Low Anesthetic Plan Anesthetic Plan: GA and Agree w/ Assess. and Plan Disposition: Standard PACU
--- NOTE | 2024-04-22 17:51 | P.OP_ITS ---
Operative Note Operative Note Date of Service: 04/22/24 Narrative: PreOperative Diagnosis: Left testicle mass Post Operative Diagnosis: Left testicle mass Procedure: Left radical orchiectomy Surgeon: Dr Paul Shaikh Anesthesia: general Indications for procedure: Left testicular mass on imaging. Recommend radical orchiectomy. High percentage chance of testicular cancer Procedure: After informed consent was verified the patient was brought to the operating room and placed in a supine position. Anesthesia was administered per protocol. The patient was prepped and draped in a sterile fashion. Safety pause time-out was performed. Antibiotics being given. Palpation was performed through the right inguinal canal. The canal was palpa omaira and an incision marked approximately 10 cm in length running 2 to 3 cm caudad to the inguinal canal. Local anesthetic was infiltrated. The incision was made with a 10 blade through the skin into the subcutaneous tissue. Subcutaneous tissue was dissected until the cord was identified and the surrounding fascia. A Aneta clamp was placed from the lateral superior pubis under the cord struct ures and the cord was isolated using a quarter-inch Shruti drain. This was double wrapped to control vascular drainage from the testicular manipulation. The testicle itself was then delivered from the scrotum through the incision. The gubernacular attachments were divided using a LigaSure device to minimize postoperative bleeding. Once the testicle had been freed in fully elevated the empty scrotal sac was irrigated. The cord was traced in a proximal fashion and the overlying fascia was divided for approximately 1 in over the inguinal canal. Cord was fully elevated and the vas deferens was dissected free from the vascular pedicle. Clamps were placed on the vas deferens and separately through the vascular pedicle. The cord structures were then divided using the LigaSure device. The vascular pedicle was marked using a stick tie 3.0 Prolene. A long tail was left as the cord structures retracted into the retroperitoneal space. The vas deferens was tied with a 3-0 Vicryl. The overlying fascia was then reapproximated using a running 3-0 Vicryl suture. The wound was then re-irrigated. Tara's fascia was reapproximated with interrupted 3-0 Vicryl. Skin edge was reapproximated with 2 interrupted 3-0 Vicryl sutures. Skin was closed using a running 4-0 Monocryl suture. At completion of skin closure glue was used. A dressing was placed. He tolerated procedure well. Was extubated in the operating room and transferred in a stable condition to the recovery area. Pathology: Left testicle Drains: none
[2024-04-22 17:53] VITALS: BP 118/68; PULSE 62; RESP 16; TEMP 36.3; O2SAT 100
[2024-04-22 17:58] VITALS: BP 114/60; PULSE 71; RESP 16; O2SAT 100
[2024-04-22 18:03] VITALS: BP 119/69; PULSE 60; RESP 16; O2SAT 100
[2024-04-22 18:08] VITALS: BP 120/85; PULSE 60; RESP 16; TEMP 36.3; O2SAT 100
== END 2024-04-22 18:27 | disposition home or self-care (01) ==
PROVIDERS: Visit Provider Urology
PROC: (CPT 54530; principal; 2024-04-22 16:30)
DX: C62.92 Malignant neoplasm of left testis, unspecified whether descended or undescended (principal); N50.812 Left testicular pain; E29.9 Testicular dysfunction, unspecified
CPT/HCPCS: 54530; 88309; 88313; 88341; 88342; J0131; J0690; J2003; J2704; J2795; J3010

== ENCOUNTER → 2024-04-22 14:01 | Outpatient (BNV) | payer OTHER, SELFPAY | PROVIDERS: Visit Provider Urology | DX: C62.92 Malignant neoplasm of left testis, unspecified whether descended or undescended (principal) | CPT/HCPCS: 54530 ==

== ENCOUNTER 2024-04-23 21:52 | Emergency (ER) | payer OTHER, SELFPAY ==
[2024-04-23 22:03] VITALS: BP 103/50; PULSE 60; RESP 18; TEMP 36.8; O2SAT 96; BMI 21.8
[2024-04-23 23:36] LABS: MANUAL DIFF FLAG NO
[2024-04-23 23:37] LABS: Basophils Percent Auto 0.4 % (0-2); Hematocrit 42.4 % (42.0-52.0); Hemoglobin 14.8 g/dl (14.0-18.0); Imm Gran Abs Auto 0.03 X10*3/uL (0.00-0.03); Imm Gran Pct Auto 0.3 % (0.0-0.4); Lymphocytes Absolute Auto 1.6 X10*3/uL (1.2-4.9); Lymphocytes Percent Auto 14.3 % (20-40); Mean Corpuscular HGB Conc 34.9 g/dl (31.0-36.0); Mean Corpuscular Volume 80.2 fL (80.0-98.0); Mean Platelet Volume 9.3 fL (9.4-12.4); Monocytes Percent Auto 8.8 % (2-11); Neutrophils Absolute Auto 8.5 x10*3/uL (2.0-8.3); Neutrophils Percent Auto 76.2 % (45-73); Platelet Count 216 X10*3/uL (160-400); Red Blood Count 5.29 X10*6/uL (4.60-5.80); Red Cell Distribution Width 12.8 % (11.0-16.0); White Blood Count 11.2 X10*3/uL (4.8-10.8)
[2024-04-23 23:50] LABS: Alanine Aminotransferase 24 U/L (0-40); Albumin Level 4.7 g/dL (3.5-5.0); Alkaline Phosphatase 86 U/L (39-117); Anion Gap 14 (12-20); Aspartate Amino Transferase 30 U/L (5-37); Bilirubin Total 0.5 mg/dL (0.0-1.0); Blood Urea Nitrogen 15 mg/dL (9-16); Calcium 9.4 mg/dL (8.4-10.2); Carbon Dioxide 25 mmol/L (22-29); Chloride 107 mmol/L (96-108); Creatinine Clr Calc Pharmacy 107.1; Estimated Glomerular Filt Rate > 60; Glucose Random 99 mg/dL (60-115); Potassium 4.1 mmol/L (3.3-5.1); Sodium 142 mmol/L (135-145); Total Protein 8.1 g/dL (6.5-8.0)
[2024-04-24 00:34] VITALS: BP 113/64; PULSE 63; RESP 16; TEMP 36.7; O2SAT 100
--- NOTE | 2024-04-24 01:26 | ED_ITS ---
HPI - Nausea/Vomiting/Diarrhea General Chief complaint: Nausea/Vomiting/Diarrhea Stated complaint: surgery yesterday vomiting and diarrhea Time Seen by Provider: 04/24/24 01:08 Source: patient Mode of arrival: ambulatory Limitations: no limitations History of Present Illness ED Provider: Dr. 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 Shaikh who presents emergency department for evaluation nausea, vomiting, hallucinations and increased testicular pain after taking 1 dose of oxycodone. The patient describes vivid hallucinations which caused him to twitch and come which he believes caused him to have increased pain in his left groin area. Patient states that since taking the oxycodone he has had multiple episodes of vomiting. He states the hallucinations have resolved. He states that his left sided postoperative pain is 7 to 9/10 at its worst. He denied fever or chills. He states that he has no difficulty urinating or moving his bowels. At the time my evaluation he states that his hallucinations and nausea have resolved but he still having significant testicular pain. Related Data Previous Rx's ?Medication ?Instructions ?Recorded naproxen 500 mg tablet 500 mg PO BID PRN pain 7 days #14 04/22/24 tabs oxycodone 5 mg tablet 5 mg PO Q8H PRN pain 3 days #8 tabs 04/22/24 morphine 15 mg immediate release 15 mg PO Q6H PRN pain #14 tabs 04/24/24 tablet ondansetron 4 mg disintegrating 4 mg PO Q6-8H PRN nausea and 04/24/24 tablet vomiting #14 tabs Allergies Allergy/AdvReac Type Severity Reaction Status Date / Time No Known Allergies Allergy Verified 04/23/24 22:03 [No Known Allergies*] Review of Systems 2 Review of Systems: Yes all other systems are reviewed and are negative PMFSH Past Medical History Medical History (Updated 04/24/24 @ 01:28 by Mca Colvin MD) Testicular cancer Surgical History (Updated 04/22/24 @ 14:30 by Allyson Pace RN) No pertinent past surgical history Social History Social History Household Members Other:: s.o. and her family Are you a primary care information associate to a significant other at home: No Do you presently have visiting nurse or other home services: No Patient Tobacco Use Status: Never used Tobacco Advance Directives: No Advance Directives Information Provided: Yes Do you have a plan to hurt others: No Plan Physical Exam 2 Vital Signs: Vital Signs: Last Vital Signs Temp 98.0 F 04/24/24 02:14 Pulse 63 04/24/24 02:14 Resp 16 04/24/24 02:14 BP 113/64 04/24/24 02:14 Pulse Ox 100 04/24/24 02:14 O2 Del Method Room Air 04/24/24 02:14 BMI result Body Mass Index 21.8 vital signs were normal Exam: General: Awake, alert in no distress Head: Normocephalic, atraumatic EENT: PERRL, Lids normal, sclera normal, conjunctiva normal, nose normal , ears normal, throat without erythema or exudates Lung: breath sounds symmetric, no wheezing, rales or rhonchi Heart: regular rate and rhythm, normal S1, S2 no murmurs or rubs Abdomen: soft, [id number] suprapubic tenderness, nondistended, normal bowel sounds Back: no vertebral tenderness, no CVAT Neuro: Awake, alert, oriented, normal speech Psych: Pleasant, cooperative Medications Administered Discontinued Medications Generic Name Dose Route Start Last Admin Trade Name Freq PRN Reason Stop Dose Admin Morphine Sulfate 15 mg 04/24/24 01:51 04/24/24 02:05 Morphine Sulfate Immed Release 15 Mg Tablet PO 04/24/24 01:52 15 mg ONCE ONE Administration Ondansetron HCl 4 mg 04/23/24 23:02 04/24/24 01:46 Ondansetron Odt 4 Mg Tab.Rapdis TRANSLINGU 04/23/24 23:03 4 mg ONCE ONE Administration Medical Decision Making Medical Decision Making MDM Narrative: 18-year-old male with his 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 Shaikh who presents emergency department for evaluation nausea, vomiting, hallucinations and increased testicular pain after taking 1 dose of oxycodone. vital signs were normal. Physical examination did reveal mild to moderate suprapubic tenderness otherwise unremarkable. Differential diagnosis: Includes but is not limited to adverse drug reaction to oxycodone, viral syndrome Course: The patient's physical examination did reveal moderate suprapubic tenderness but otherwise was unremarkable. At this time I suspect that the patient's symptoms were caused by an adverse reaction to oxycodone I did discuss this with the patient. The patient is taking naproxen that was prescribed that Dr. Shaikh. The patient thinks that he is still going to need more pain medications therefore I did prescribe morphine 15 mg every 6 hours as needed for pain dispense 14 tablets. He was also advised to take Tylenol 1000 mg every 6 hours as needed for pain. He was also given prescription for Zofran 4 mg ODT every 6- 8 hours as needed for nausea and vomiting. Patient was given printed and verbal instructions and discharged home. Admission/Observation Consideration of admission/observation: Escalation of care including admission/observation considered ( no) Lab Data MDM Lab Attestation statement: I reviewed the patient's lab results. my independent interpretation patient's laboratory evaluation is as follows: WBC elevated 11,200. CMP was normal. 04/23/24 23:34 04/23/24 23:34 Labs: Lab Results 04/23/24 Range/Units 23:34 WBC 11.2 H (4.8-10.8) X10*3/uL RBC 5.29 (4.60-5.80) X10*6/uL Hgb 14.8 (14.0-18.0) g/dl Hct 42.4 (42.0-52.0) % MCV 80.2 (80.0-98.0) fL MCH 28.0 (27.0-33.0) pg MCHC 34.9 (31.0-36.0) g/dl RDW 12.8 (11.0-16.0) % Plt Count 216 (160-400) X10*3/uL MPV 9.3 L (9.4-12.4) fL Immature Gran % (Auto) 0.3 (0.0-0.4) % Neut % (Auto) 76.2 H (45-73) % Lymph % (Auto) 14.3 L (20-40) % Gonzales % (Auto) 8.8 (2-11) % Eos % (Auto) 0.0 (0-4) % Baso % (Auto) 0.4 (0-2) % Lymph # (Auto) 1.6 (1.2-4.9) X10*3/uL Gonzales # (Auto) 1.0 (0.1-1.2) X10*3/uL Eos # (Auto) 0.0 (0.0-0.4) X10*3/uL Baso # (Auto) 0.0 (0.0-0.2) X10*3/uL Abs Immat Gran (auto) 0.03 (0.00-0.03) X10*3/uL Absolute Neuts (auto) 8.5 H (2.0-8.3) x10*3/uL Absolute Nucleated RBC 0.000 (0.0-0.012) X10*3/uL Nucleated RBC % (auto) 0.0 (0.0-0.2) /100WBC Sodium 142 (135-145) mmol/L Potassium 4.1 (3.3-5.1) mmol/L Chloride 107 (96-108) mmol/L Carbon Dioxide 25 (22-29) mmol/L Anion Gap 14 (12-20) BUN 15 (9-16) mg/dL Creatinine 0.96 (0.5-1.4) mg/dL Estim Creat Clear Calc 107.1 Estimated GFR > 60 Random Glucose 99 (60-115) mg/dL Calcium 9.4 (8.4-10.2) mg/dL Total Bilirubin 0.5 (0.0-1.0) mg/dL AST 30 (5-37) U/L ALT 24 (0-40) U/L Alkaline Phosphatase 86 (39-117) U/L Total Protein 8.1 H (6.5-8.0) g/dL Albumin 4.7 (3.5-5.0) g/dL External Record Review External record reviewed: Inpatient record ( Urology surgical note) and Office record ( urology office note) Prescription Management I considered prescription management with: Pain Medication ( morphine) and Other ( anti emetic: Zofran ODT) Discharge Plan Discharge Clinical Impression: Adverse drug reaction, Vomiting, Hallucination, drug-induced Patient Disposition: Home, Self-Care Additional Instructions: Your symptoms were caused by oxycodone. Stop this medication. Continue taking your naproxen as prescribed by Dr. Shaikh. Take Tylenol (acetaminophen) 2 pills every 6 hours as needed for pain. For pain not relieved by naproxen or Tylenol take morphine 15 mg pills, 1 pill every 6 hours as needed for pain. This medication will make you sleepy, do not drive or work while taking this medication. Morphine is a narcotic medication and can be addicting. If you are concerned about addiction you can ask the pharmacist for less pills or do not get this prescription filled. Take Zofran ODT 4 mg pills, 1 pill dissolved in your mouth every 8 hours as needed for nausea and vomiting. Follow-up with your doctor in 2 days. Please return to the emergency department if your symptoms get worse or if you develop any symptoms that are concerning to you. Prescriptions: New morphine 15 mg tablet 15 mg PO Q6H PRN (Reason: pain) Qty: 14 0RF Rx Instructions: Partial Fill upon patient request. ondansetron 4 mg tablet,disintegrating 4 mg PO Q6-8H PRN (Reason: nausea and vomiting) Qty: 14 0RF No Action naproxen 500 mg tablet 500 mg PO BID PRN (Reason: pain) 7 Days Qty: 14 0RF oxycodone 5 mg tablet 5 mg PO Q8H PRN (Reason: pain) 3 Days Qty: 8 0RF Rx Instructions: Partial Fill upon patient request. Interventions: ED Discharge Assessment Last Done: 04/24/24 02:14 Discharge Date/Time: 04/24/24 02:14 Print Language: Tajik
--- OUTSIDE RECORDS SUMMARY | 2024-04-24 01:45 | XMS_ITS | Encounter Summary ---
Author Organization [facility] Address [address] [place] [address] Phone Care Team Providers Care Stave Block Splitter Name Role Phone Mackenzie Ya MD Primary Care Provider [phone] Encounter Details Date Type Department Care Team (Late st Contact Info) Description 08/31/2015 Documentation [facility] [place] [facility] [address] [place] [address] Family Medicine, Physician [address] [place], [place] [phone] Social History Tobacco Use Types Packs/Day Years [...] on filedocumented in this encounter Care Teams Stave Block Splitter Relationship Specialty Start Date End Date Mackenzie Ya MD [address] [facility] [place] [address] PCP - General 09/30/16 05/11/23 documented as of this encounter
--- OUTSIDE RECORDS SUMMARY | 2024-04-24 01:45 | XMS_ITS | Encounter Summary ---
Author Organization [facility] Address [address] [place] [address] Phone Care Team Providers Care Pharmacy Associate Name Role Phone Mackenzie Ya MD Primary Care Provider [phone] Encounter Details Date Type Department Care Team (Late st Contact Info) Description 10/06/2016 Conversion Encounter [facility] [place] [address] [place] [address] Social History Tobacco Use Types Packs/Day Years [...] on filedocumented in this encounter Care Teams Pharmacy Associate Relationship Specialty Start Date End Date Mackenzie Ya MD [address] [place] [address] PCP - General 09/30/16 05/11/23 documented as of this encounter
[2024-04-24] MEDS: Ondansetron ODT 4 MG TAB.RAPDIS TRANSLINGU (01:46)
[2024-04-24] MEDS: Morphine Sulfate Immed Release 15 MG TABLET PO (02:05)
[2024-04-24 02:14] VITALS: BP 113/64; PULSE 63; RESP 16; TEMP 36.7; O2SAT 100
== END 2024-04-24 02:14 | disposition home or self-care (01) ==
PROVIDERS: Emergency Provider Emergency Medicine Emergency Medical Services
DX: R11.2 Nausea with vomiting, unspecified (principal); R44.3 Hallucinations, unspecified; T40.2X5A Adverse effect of other opioids, initial encounter; Y92.9 Unspecified place or not applicable; Z85.47 Personal history of malignant neoplasm of testis; Z90.79 Acquired absence of other genital organ(s); Z98.890 Other specified postprocedural states
CPT/HCPCS: 36415; 80053; 85025; 99283; 99284

== ENCOUNTER 2024-05-09 14:36 | Outpatient (AMB) | payer OTHER, SELFPAY ==
--- NOTE | 2024-05-09 14:39 | MHC.OFFVIS ---
Intake Visit Reasons: Left radical orchiectomy- follow up Intake Note: Patient is present for LEFT RADICAL ORCHIECTOMY F/U Urology Medication:NONE Antibiotic Allergy:NONE Blood Thinner:NONE Devulcanizer Operator Required: No Allergies No Known Allergies [No Known Allergies*] Allergy (Verified 05/09/24 14:40) HPI Comments Details: Jaden is a pleasant male. 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 and her family Are you a primary healthcare manager to a significant other at home: No Do you presently have visiting nurse or other home services: No Patient Tobacco Use Status: Never used Tobacco Review of Systems Const Denies chills and Denies fever(s) Card Reports no additional complaints and Denies syncope Resp Denies cough GI Denies abdominal pain and Denies heartburn Reports as per HPI and Denies change in libido Neuro Denies syncope Psych Denies change in libido Endo Denies change in libido Physical Exam Const General: cooperative, healthy appearing, comfortable and no acute distress Orientation/consciousness: patient oriented x3 HEENT Face and sinus: Yes normal facial exam Mouth: moist mucous membranes Neck Neck: Yes normal visual inspection, Yes full ROM and Yes trachea midline Chest Chest palpation & inspection: normal inspection of the chest Resp Effort & Inspection: normal respiratory effort, able to speak in complete sentences and no respiratory distress GI Inspection: Yes normal to inspection Back/Spine/Pelvis Cervical Spine: normal cervical lordosis Thoracic/Lumbar Spine: thoracic and lumbar spine normal to inspection Skin General skin exam: no rashes or lesions noted Neuro General: patient oriented x3, gait normal, tone normal and moves all extremities Extrem General: Yes normal to inspection and Yes capillary refill normal Assessment & Plan Assessment & Plan (1) Testicular cancer: Code(s): C62.90 - Malignant neoplasm of unspecified testis, unspecified whether descended or undescended Category: Medical Plan Referral oncology Six-month follow-up Orders: Referrals Hematology & Oncology Referral C62.90 - Malignant neoplasm of unspecified testis, unspecified whether descended or undescended Patient Instructions: This note is constructed using voice recognition software. While every effort has been made to ensure accuracy transmission supervisor errors may have been included. Imaging studies, laboratory and physical exam results were discussed and reviewed in detail. No major barriers to patient understanding were identified. An opportunity to ask questions regarding the treatment plan was provided. All questions were answered. The patient expressed understanding and agreement with the above treatment plan. The patient is aware they should contact our office by phone for worsening of their current condition or the appearance of new urologic symptoms. Compliance is encouraged with any medications and followup testing that is ordered. It is a privilege to participate in the urologic care of your patient. If you have any questions or concerns regarding treatment for the above conditions, or other urologic issues, please do not hesitate to contact me. The office telephone contact is [phone]. Sincerely, Dr Paul Shaikh MD, [facility] - Urology Compassionate Specialist Care for the Genitourinary System Coding Level of Care Code Est Pt Level 4 (24800) Diagnoses Testicular cancer C62.90
== END 2024-05-09 15:02 | disposition home or self-care (01) ==
LOC: HO.HUSH 14:37
PROVIDERS: Visit Provider Urology
DX: C62.90 Malignant neoplasm of unspecified testis, unspecified whether descended or undescended (principal)
CPT/HCPCS: 99024

== ENCOUNTER → 2024-05-09 14:36 | Outpatient (BNVA) | payer OTHER, SELFPAY | PROVIDERS: Visit Provider Urology | DX: C62.90 Malignant neoplasm of unspecified testis, unspecified whether descended or undescended (principal) | CPT/HCPCS: 99212 ==

== ENCOUNTER → 2024-05-17 09:58 | Outpatient (BNV) | payer OTHER, SELFPAY | PROVIDERS: Referring Provider Urology; Visit Provider Internal Medicine | DX: C62.12 Malignant neoplasm of descended left testis (principal) | CPT/HCPCS: 99205; G2211 ==

== ENCOUNTER 2024-05-22 13:56 | Outpatient (REF) | payer OTHER, SELFPAY ==
--- NOTE | 2024-05-22 14:00 | PFT_ITS ---
Flows: FEV1: 105 % of predicted at 4.29 L FVC: 104 % of predicted at 4.95 L FEV1/FVC: 87 % Bronchodilator response: Absent Volumes: Total lung capacity: 105 % of predicted at 6.14 L Residual volume: 100 % of predicted at on 1.25 L Slow vital capacity: 108 % of predicted at 4.89 L Expiratory reserve volume: 157 % of predicted at 2.27 L Diffusion capacity: Normal Impression: No obstructive or restrictive ventilatory defect. No bronchodilator response. Normal pulmonary function test. MTDD
[2024-05-22 14:53] LABS: MANUAL DIFF FLAG NO
[2024-05-22 15:08] LABS: Basophils Absolute Auto 0.1 X10*3/uL (0.0-0.2); Basophils Percent Auto 0.6 % (0-2); Eosinophils Absolute Auto 0.2 X10*3/uL (0.0-0.4); Eosinophils Percent Auto 1.9 % (0-4); Hematocrit 42.9 % (42.0-52.0); Hemoglobin 14.7 g/dl (14.0-18.0); Imm Gran Abs Auto 0.05 X10*3/uL (0.00-0.03); Imm Gran Pct Auto 0.6 % (0.0-0.4); Lymphocytes Absolute Auto 2.3 X10*3/uL (1.2-4.9); Lymphocytes Percent Auto 26.9 % (20-40); Mean Corpuscular HGB Conc 34.3 g/dl (31.0-36.0); Mean Corpuscular Hemoglobin 27.3 pg (27.0-33.0); Mean Corpuscular Volume 79.7 fL (80.0-98.0); Mean Platelet Volume 9.2 fL (9.4-12.4); Monocytes Absolute Auto 0.8 X10*3/uL (0.1-1.2); Monocytes Percent Auto 9.4 % (2-11); Neutrophils Absolute Auto 5.2 x10*3/uL (2.0-8.3); Neutrophils Percent Auto 60.6 % (45-73); Platelet Count 242 X10*3/uL (160-400); Red Blood Count 5.38 X10*6/uL (4.60-5.80); Red Cell Distribution Width 12.7 % (11.0-16.0); White Blood Count 8.6 X10*3/uL (4.8-10.8)
[2024-05-22 15:37] LABS: Alanine Aminotransferase 27 U/L (0-40); Albumin Level 4.9 g/dL (3.5-5.0); Alkaline Phosphatase 84 U/L (39-117); Anion Gap 11 (12-20); Aspartate Amino Transferase 30 U/L (5-37); Bilirubin Total 0.3 mg/dL (0.0-1.0); Blood Urea Nitrogen 14 mg/dL (9-16); Calcium 9.6 mg/dL (8.4-10.2); Carbon Dioxide 29 mmol/L (22-29); Chloride 104 mmol/L (96-108); Estimated Glomerular Filt Rate > 60; Glucose Random 89 mg/dL (60-115); Lactate Dehydrogenase 196 U/L (118-273); Potassium 4.4 mmol/L (3.3-5.1); Sodium 140 mmol/L (135-145)
--- OUTSIDE RECORDS SUMMARY | 2024-05-22 16:43 | XMS_ITS | Clinical Summary ---
Author Organization [facility] Address [address] [place] [id number] Phone Care Team Providers Care Adventure Therapist Name Role Phone Unavailable Primary Care Provider [...] (08/13/2018): Concerns: New Practice - Transfer from [facility]. Last [facility] 02/21/14. DCF custody since 11/2013. 1st in Foster care then Great Mat Aunt got custody 01/2014. Mom is listed as having Bipolar illness. Dad in MVA 2009 Lived in [place] for 2 years in past when living with Pat GP while mom was homeless. Has been back in [place] since 2012 Mom had supervised visits but stopped when Mom grabbed Great Aunt. DCF worker = Kristin Valera [employer] PGP are trying to get custody 07/2018: [...] 65.56% 05/25 10:16 AM EDT Growth Chart: [facility] (Boys, 2-2 0 Years) Plan of Treatment [...] 16 Meningococcal Vaccine Completed 05/25/2022, 016 Insurance [facility] NON PCC [facility] Address: [address] [address] [place] [address]
--- OUTSIDE RECORDS SUMMARY | 2024-05-22 16:43 | XMS_ITS | Encounter Summary ---
Author Organization [facility] Address [address] [place] [address] Phone Care Team Providers Care Ambulance Dispatcher Name Role Phone Mackenzie Ya MD Primary Care Provider Encounter Details Date Type Department Care Team (Late st Contact Info) Description 10/06/2016 Conversion Encounter [facility] [place] [address] [place] [address] Social History Tobacco Use Types Packs/Day Years [...] on filedocumented in this encounter Care Teams Ambulance Dispatcher Relationship Specialty Start Date End Date Mackenzie Ya MD [address] [place] [address] PCP - General 09/30/16 05/11/23 documented as of this encounter
--- OUTSIDE RECORDS SUMMARY | 2024-05-22 16:43 | XMS_ITS | Encounter Summary ---
Author Organization [facility] Address [address] [place] [address] Phone Care Team Providers Care Live Games Dealer Name Role Phone Mackenzie Ya MD Primary Care Provider [phone] Encounter Details Date Type Department Care Team (Late st Contact Info) Description 08/31/2015 Documentation [facility] [place] [address] [place] [address] Family Medicine, Physician [address] [place], [place] [phone] Social History Tobacco Use Types Packs/Day Years [...] on filedocumented in this encounter Care Teams Live Games Dealer Relationship Specialty Start Date End Date Mackenzie Ya MD [address] [facility] [place] [address] PCP - General 09/30/16 05/11/23 documented as of this encounter
[2024-05-23 06:19] LABS: HCG Tumor Marker <5 mIU/mL (<5)
[2024-05-23 08:11] LABS: HBS Num1 62.92 mIU/mL (0-7.99); HBc Num1 0.06 S/CO (0.00-0.79); HBsAGNum1 0.35 S/CO (0.00-0.99); Hepatitis B Core Antibody Nonreactive (Nonreactive); Hepatitis B Surface Antigen Negative (Negative); ~Hepatitis B Surface Antibody REACTIVE (Nonreactive)
[2024-05-23 12:18] LABS: Alpha Fetoprotein 1.9 ng/mL (<6.1)
== END 2024-05-22 13:57 | disposition home or self-care (01) ==
LOC: HO.RESP 13:56
PROVIDERS: Visit Provider Internal Medicine
DX: Z01.818 Encounter for other preprocedural examination (principal); C62.90 Malignant neoplasm of unspecified testis, unspecified whether descended or undescended
CPT/HCPCS: 36415; 80053; 82105; 83615; 84702; 85025; 86704; 86706; 87340; 94727

== ENCOUNTER → 2024-05-22 14:00 | Outpatient (BNV) | payer OTHER, SELFPAY | PROVIDERS: Visit Provider Internal Medicine Pulmonary Disease | DX: Z01.811 Encounter for preprocedural respiratory examination (principal); C62.90 Malignant neoplasm of unspecified testis, unspecified whether descended or undescended | CPT/HCPCS: 94060; 94727; 94729 ==

== ENCOUNTER 2024-11-12 15:24 | Outpatient (AMB) | payer OTHER, SELFPAY ==
--- NOTE | 2024-11-12 15:27 | A.OFFVIS_ITS ---
Intake Visit Reasons: 6m follow up Intake Note: Patient is present for 6 mo follow up Urology Medication:NONE Antibiotic Allergy:NONE Blood Thinner:NONE Oil Field Worker Required: No Accompanied by: Self / Same As Patient Allergies oxycodone Adverse Reaction (Verified 11/12/24 15:27) Vomiting HPI Comments Details: Jaden is a pleasant male. 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 -Tumor is limited to testis with rete testis invasion, 2.2 cm (pT1a) [facility] Medical History (Updated 11/12/24 @ 17:15 by Paul Shaikh MD) Testicular cancer Surgical History No pertinent past surgical history Family History Sister Throat cancer Paternal Grandmother Cancer Social History Household Members: Significant Other and Family Household Members Other:: s.o. 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 While every effort has been made to ensure accuracy registered account administrator errors may have been included. Imaging studies, laboratory and physical exam results were discussed and reviewed in detail. No major barriers to patient understanding were identified. An opportunity to ask questions regarding the treatment plan was provided. All questions were answered. The patient expressed understanding and agreement with the above treatment plan. The patient is aware they should contact our office by phone for worsening of their current condition or the appearance of new urologic symptoms. Compliance is encouraged with any medications and followup testing that is ordered. It is a privilege to participate in the urologic care of your patient. If you have any questions or concerns regarding treatment for the above conditions, or other urologic issues, please do not hesitate to contact me. The office telephone contact is [phone]. Sincerely, Dr Paul Shaikh MD, [facility] - Urology Compassionate Specialist Care for the Genitourinary System Coding Level of Care Code Est Pt Level 3 (57213) Diagnoses Testicular cancer C62.90
--- OUTSIDE RECORDS SUMMARY | 2024-11-12 18:18 | XMS_ITS | Encounter Summary ---
Author Organization [facility] Address [address] [place] [address] Phone Care Team Providers Care Associate Professor Of Archaeology Name Role Phone Mackenzie Ya MD Primary Care Provider [phone] Encounter Details Date Type Department Care Team (Late st Contact Info) Description 08/31/2015 Documentation [facility] [place] [address] [place] [address] Family Medicine, Physician [address] [place], [place] [phone] Social History Tobacco Use Types Packs/Day Years [...] on filedocumented in this encounter Care Teams Associate Professor Of Archaeology Relationship Specialty Start Date End Date Mackenzie Ya MD [address] [facility] [place] [address] PCP - General 09/30/16 05/11/23 documented as of this encounter
--- OUTSIDE RECORDS SUMMARY | 2024-11-12 18:18 | XMS_ITS | Encounter Summary ---
Author Organization [facility] Address [address] [place] [address] Phone Care Team Providers Care Mental Health Nurse Name Role Phone Mackenzie Ya MD Primary Care Provider [phone] Encounter Details Date Type Department Care Team (Late st Contact Info) Description 10/06/2016 Conversion Encounter [facility] [place] [address] [place] [address] Social History Tobacco Use Types Packs/Day Years [...] on filedocumented in this encounter Care Teams Mental Health Nurse Relationship Specialty Start Date End Date Mackenzie Ya MD [address] [place] [address] PCP - General 09/30/16 05/11/23 documented as of this encounter
--- OUTSIDE RECORDS SUMMARY | 2024-11-12 18:18 | XMS_ITS | Clinical Summary ---
Author Organization [facility] Address [address] [place] [address] Phone Care Team Providers Care Conveyor Loader Name Role Phone Unavailable Primary Care Provider [...] (08/13/2018): Concerns: New Practice - Transfer from [facility]. Last [facility] 02/21/14. DCF custody since 11/2013. 1st in Foster care then Great Mat Aunt got custody 01/2014. Mom is listed as having Bipolar illness. Dad in MVA 2009 Lived in [place] for 2 years in past when living with Pat GP while mom was homeless. Has been back in [place] since 2012 Mom had supervised visits but stopped when Mom grabbed Great Aunt. DCF worker = Kristin Valera [employer] PGP are trying to get custody 07/2018: [...] Name Status Comments Father MVA Mother Other Bozena Mani Social History Tobacco Use Types Packs/Day [...] 65 05/25/2022 10:16 AM EDT Temperature 36.3 C (97.4 F) 02/04/2021 10:11 AM EST Respiratory Rate - - Oxygen Saturation - - Inhaled Oxygen Concentration - - Weight 61.1 kg (134 lb 9.6 oz) 05/25/2022 10:16 AM EDT Height 162.6 cm (5' 4 ) 05/25/2022 10:16 AM EDT Body Mass Index 23.1 05/25/2022 10:16 AM EDT Plan of Treatment Health Maintenance Due Date Last Done Comments Men B Vaccine (2 of 2 - Trumenba SCDM 2-dose series) 11/24/2022 05/25/2022 Influenza Vaccines (#1) 2024 05/26/19 23, 05/28/2020, 03/15/2018, Additional history exists COVID-19 Vaccine (2024- season) 2024 05/25/2022, 02/25/2021, 02/04/2021 DTaP,Tdap,and Td Vaccines (7 [...]
== END 2024-11-12 15:45 | disposition home or self-care (01) ==
LOC: HO.HUSH 15:25
PROVIDERS: Visit Provider Urology
DX: C62.90 Malignant neoplasm of unspecified testis, unspecified whether descended or undescended (principal)
CPT/HCPCS: 99213

== ENCOUNTER → 2024-11-12 15:24 | Outpatient (BNVA) | payer OTHER, SELFPAY | PROVIDERS: Visit Provider Urology | DX: C62.90 Malignant neoplasm of unspecified testis, unspecified whether descended or undescended (principal) | CPT/HCPCS: 99212 ==